=== PATIENT | male | born 1960 | race Caucasian/White ===

== ENCOUNTER 2018-06-03 11:07 | Emergency (ER) | payer SELFPAY ==
--- NOTE | 2018-06-03 11:56 | RAD ---
FXR Hand Rt 3 View STANDARD: 06/03/2018 12:00 AM CLINICAL INDICATION: Injury, pain COMPARISON: None. FINDINGS: Fracture:No fracture. 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 There is mild heterogeneity involvi ng the radial base of the second digit proximal phalanx. Incidental findings:Radiopaque jewelry overlies the wrist, limiting visualization. IMPRESSION: 1. No acute osseous abnormality.
== END 2018-06-03 13:06 | disposition home or self-care (01) ==
LOC: SCSER 11:07
DX: S63.612A Unspecified sprain of right middle finger, initial encounter (principal); M19.041 Primary osteoarthritis, right hand; E11.9 Type 2 diabetes mellitus without complications; I10 Essential (primary) hypertension; F17.210 Nicotine dependence, cigarettes, uncomplicated; Z79.899 Other long term (current) drug therapy; Z79.84 Long term (current) use of oral hypoglycemic drugs; Z71.6 Tobacco abuse counseling; W23.0XXA Caught, crushed, jammed, or pinched between moving objects, initial encounter
CPT/HCPCS: 29130; 99406